=== PATIENT | female | born 1960 | race Caucasian/White ===

== ENCOUNTER → 2017-04-21 | Outpatient (CLI) | payer OTHER | LOC: M LAB 06:02 | PROVIDERS: ATTEND Physician Assistant | DX: E55.9 Vitamin D deficiency, unspecified (principal) ==

== ENCOUNTER 2017-06-07 05:10 | Emergency (ER) | payer OTHER ==
[~2017-06-07] VITALS: Ht 177.8 cm; Wt 90.0 kg
[2017-06-07 05:10] VITALS: BP 149/71
[2017-06-07] MEDS ORDERED: LISI10TA4 PO (05:17)
[2017-06-07] MEDS ORDERED: OMEP40CA2 PO (05:17)
[2017-06-07] MEDS ORDERED: BACT800T5 PO (06:03)
[2017-06-07] MEDS ORDERED: BACTRIM 160MG/800MG DS TAB PO ONE (06:15)
[2017-06-07] MEDS ORDERED: PHENAZOPYRIDINE 100 MG TAB PO ONE (06:15)
[2017-06-07 06:17] LABS: RENAL EPITHELIAL CELLS 4 /HPF
== END 2017-06-07 06:15 | disposition home or self-care (01) ==
LOC: M ED 05:10
DX: N30.90 Cystitis, unspecified without hematuria (principal); I10 Essential (primary) hypertension; K21.9 Gastro-esophageal reflux disease without esophagitis; Z79.899 Other long term (current) drug therapy

== ENCOUNTER → 2017-09-29 | Outpatient (REF) | payer OTHER | LOC: M LAB REF 17:07 | DX: N39.0 Urinary tract infection, site not specified (principal) | CPT/HCPCS: 87088; 87186 ==

== ENCOUNTER → 2017-10-18 | Outpatient (REF) | payer OTHER ==
[2017-10-18 21:37] LABS: APPEARANCE, URINE CLOUDY (CLEAR); BACTERIA, URINE AUTO 2+ (NEGATIVE); BILIRUBIN, URINE AUTO NEGATIVE (NEGATIVE); BLOOD, URINE BLOOD 1+ (NEGATIVE); COLOR, URINE YELLOW (YELLOW); GLUCOSE, URINE (UA) AUTO NEGATIVE (NEGATIVE); KETONE, URINE AUTO NEGATIVE (NEGATIVE); LEUKOCYTE ESTERASE, URINE AUTO 3+ (NEGATIVE); MUCUS, URINE SMALL (NEGATIVE); NITRITE, URINE AUTO POSITIVE (NEGATIVE); PROTEIN, URINE AUTO NEGATIVE (NEGATIVE); RBC, URINE AUTO 3 /HPF (0-3); SPECIFIC GRAVITY URINE AUTO 1.008 (1.002-1.035); SQUAMOUS EPITHELIAL CELL UR AU 0 /HPF (0-6); WBC, URINE AUTO TNTC /HPF (0-3)
== END ==
LOC: M LAB REF 21:24
DX: N39.0 Urinary tract infection, site not specified (principal)
CPT/HCPCS: 81001

== ENCOUNTER → 2018-01-09 | Outpatient (CLI) | payer OTHER ==
[2018-01-09 07:30] LABS: ANION GAP 8 MEQ/L (8-16); BLOOD UREA NITROGEN 9 MG/DL (7-18); CALCIUM LEVEL 8.3 MG/DL (8.5-10.1); CARBON DIOXIDE LEVEL 28 MEQ/L (21-32); CHLORIDE LEVEL 110 MEQ/L (98-107); CREATININE FOR GFR 0.97 MG/DL (0.55-1.30); GLOMERULAR FILTRATION RATE > 60.0 (>51); GLUCOSE, FASTING 89 MG/DL (70-100); MAGNESIUM LEVEL 2.2 MG/DL (1.8-2.4); POTASSIUM SERUM 4.3 MEQ/L (3.5-5.1); SODIUM LEVEL 146 MEQ/L (136-145)
[2018-01-09 08:38] LABS: TOTAL 25(OH) VITAMIN D 24.5 NG/ML (30.0-100.0)
== END ==
LOC: M LAB 06:36
DX: K22.70 Barrett's esophagus without dysplasia (principal)
CPT/HCPCS: 83735

== ENCOUNTER → 2018-01-23 | Outpatient (REF) | payer OTHER | LOC: M LAB REF 14:37 | DX: R30.0 Dysuria (principal) ==

== ENCOUNTER → 2018-05-12 | Outpatient (REF) | LOC: M RAD 11:56 | DX: Z12.31 Encounter for screening mammogram for malignant neoplasm of breast (principal); Z02.1 Encounter for pre-employment examination; Z78.0 Asymptomatic menopausal state; Z85.038 Personal history of other malignant neoplasm of large intestine; Z80.3 Family history of malignant neoplasm of breast ==

== ENCOUNTER → 2018-05-26 | Outpatient (CLI) | payer OTHER ==
[2018-05-26 11:42] LABS: BASO # 0.1 10^3/uL (0.0-0.2); BASO % 0.9 % (0.0-1.0); EOS # 0.2 10^3/uL (0.0-0.50); EOS % 3.8 % (0.0-3.0); HEMATOCRIT 41.4 % (36.0-47.0); IMMATURE GRANULOCYTE % 0.5 % (0-3.0); LYMPH # 1.6 10^3/uL (1.5-4.5); LYMPH % 24.7 % (24.0-44.0); MEAN CORPUSCULAR HEMOGLOBIN 26.7 pg (27.0-33.0); MEAN CORPUSCULAR HGB CONC 31.4 g/dl (32.0-36.5); MEAN CORPUSCULAR VOLUME 85.2 fl (80.0-96.0); MONO # 0.6 10^3/uL (0.0-0.8); MONO % 9.2 % (0.0-5.0); NEUTROPHILS # 3.9 10^3/uL (1.8-7.7); NEUTROPHILS % 60.9 % (36.0-66.0); PLATELET COUNT, AUTOMATED 316 10^3/uL (150-450); RED BLOOD COUNT 4.86 10^6/uL (4.00-5.40); RED CELL DISTRIBUTION WIDTH 13.2 % (11.5-14.5); WHITE BLOOD COUNT 6.4 10^3/uL (4.0-10.0)
[2018-05-26 11:44] LABS: CARBOXYHEMOGLOBIN 2.3 % (0.0-1.5)
[2018-05-26 12:08] LABS: ANION GAP 7 MEQ/L (8-16); BLOOD UREA NITROGEN 10 MG/DL (7-18); CALCIUM LEVEL 8.4 MG/DL (8.5-10.1); CARBON DIOXIDE LEVEL 28 MEQ/L (21-32); CHLORIDE LEVEL 109 MEQ/L (98-107); CK-MB VALUE MASS < 1.0 NG/ML (<3.6); CPK CREATINE PHOSPHOKINASE 115 U/L (26-192); CREATININE FOR GFR 0.96 MG/DL (0.55-1.30); GLOMERULAR FILTRATION RATE > 60.0 (>51); GLUCOSE, FASTING 87 MG/DL (70-100); MB/CK RELATIVE INDEX 0.87 (< OR =4); SODIUM LEVEL 144 MEQ/L (136-145)
== END ==
LOC: M LAB 11:10
DX: R42 Dizziness and giddiness (principal)
CPT/HCPCS: 82550

== ENCOUNTER 2018-10-26 20:15 | Emergency (ER) | payer OTHER ==
[~2018-10-26] VITALS: Ht 177.8 cm; Wt 93.2 kg
[~2018-10-26 20:15] MED LIST: BACT800T5 PO; LISI10TA4 PO; OMEP40CA2 PO
[2018-10-26] MEDS ORDERED: MORPHINE 4 MG/ML 1ML VIAL/SYRINGE (J2270) IM ONE (20:45)
[2018-10-26] MEDS ORDERED: ONDANSETRON 4 MG ORAL DISINTEGRATING TAB (Q0162 PER 1MG) PO ONE (20:45)
[2018-10-26] MEDS ORDERED: HYDROMORPHONE HCL 0.5 MG/ 0.5 ML SYRINGE (J1170 PER 1) IV ONE (22:45)
[2018-10-26] MEDS ORDERED: NS 1,000 ML IV ONE (23:45)
[2018-10-27] MEDS ORDERED: LIDOCAINE 1% MDV 20ML VIAL As Ordered ONE (01:38)
[2018-10-27] MEDS ORDERED: LIDOCAINE 1% MDV 20ML VIAL SC ONE (01:45)
[2018-10-27] MEDS ORDERED: HYDROMORPHONE HCL 0.5 MG/ 0.5 ML SYRINGE (J1170 PER 1) IV ONE (02:45)
[2018-10-27] MEDS ORDERED: DILA2TAB6 PO (03:17)
[2018-10-27] MEDS ORDERED: traMADol 50 MG TAB (BULK 4 TAB ED) PO ONE (03:30)
[2018-10-27 03:34] VITALS: BP 114/69
--- NOTE | 2018-10-27 07:13 | CR ---
DATE OF CONSULTATION: 10/26/2018 REASON FOR CONSULTATION: Left displaced distal radius fracture. CONSULTING PHYSICIAN: Dr. Tristen Jacobsen CHIEF COMPLAINT: Left wrist pain. HISTORY OF PRESENT ILLNESS: Stacie Sandoval is a 58-year-old [id number] female who sustained a fall on an outstretched left upper extremity earlier today resulting immediate pain and dysfunction about the left wrist. She presented to the emergency department and was found to have a displaced distal radius fracture and orthopedics was consulted for definitive management. She had denied any antecedent chest pain, shortness of breath or other constitutional symptoms. She localized pain to the left wrist. She denied any associated numbness, tingling or burning sensations distally about the left upper extremity and no other complaints. PAST MEDICAL HISTORY: Hypertension, gastroesophageal reflux disease, colon cancer. MEDICATIONS: - metoprolol - omeprazole ALLERGIES: No known drug allergies. She does have a LATEX allergy. PAST SURGICAL HISTORY: Sigmoidectomy for colon cancer. FAMILY HISTORY: Noncontributory. 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 She does not smoke, drink or use illicit drugs. REVIEW OF SYSTEMS: 14-point review of systems was reviewed and is unremarkable. PHYSICAL EXAMINATION: Vital Signs: Reviewed and normal. General: This is a well-nourished female who appears her stated age in no acute distress. Neurologic: She is awake, alert and oriented to person, place and time. She has intact sensory and motor function in her left upper extremity radial, median, ulnar, AIN and PIN distributions. There is no pain with passive stretch of the fingers. Cardiovascular: She has 2+ radial pulse and brisk capillary refill to all digits of the left upper extremity. Musculoskeletal: Focused physical exam of the left upper extremity demonstrated no open wounds or abrasions. There was ecchymosis on the volar aspect of the wrist. She is able to independently flex and extend all digits of the left upper extremity. There was maximal tenderness on the dorsal aspect of distal radius. RADIOGRAPHS: Plain radiographs of the left wrist demonstrate a displaced comminuted distal radius fracture with about 40 degrees of apex volar angulation. ASSESSMENT: This is a 58-year-old, right hand dominant female with a left displaced distal radius fracture. PLAN: I discussed the patient the natural history of displaced distal radius fractures and the treatment options. We discussed a closed reduction and splinting in the emergency department and stated that if we were able to obtain and maintain adequate closed reduction, then surgical management may be avoidable. The patient would like to avoid surgery if possible. Therefore, she provided informed consent for left wrist closed reduction under hematoma block. PROCEDURE NOTE: After the skin of the left wrist was carefully prepped, I injected 5 mL of 1% lidocaine without epinephrine into the fracture site using mini C-arm fluoroscopic guidance using a barbotage technique. The patient was then placed into 10 pounds of traction for 15 minutes to use ligamentotaxis to obtain length. I was able to restore the length and radial tilt of her distal radius and then performed a closed reduction. I was able to restore the tilt to at least neutral. She was placed in a well-padded sugar-tong splint. The patient tolerated the procedure well. PLAN: The patient will be discharged from the emergency department later today. She will follow up with me in the clinic later this week for repeat radiographs in the splint. If she is able to maintain reduction, then will continue with nonoperative management. If she loses the reduction, then we will likely proceed with open reduction internal fixation. The patient expressed understanding and agreement with the plan. VANCE
--- NOTE | 2018-10-27 08:16 | REP ---
Left forearm two views: There is a Colles fracture of the distal radius. There is a fracture of the base of the ulnar styloid. Mineralization and joint spaces otherwise are unremarkable. Electronically Signed by Arpan Drake MD 10/27/2018 08:08 A
--- NOTE | 2018-10-27 08:17 | REP ---
Left wrist four views: There is a Colles fracture of the distal radius. There is a fracture of base of the ulnar styloid. Mineralization and joint spaces otherwise are unremarkable. Electronically Signed by Arpan Drake MD 10/27/2018 08:09 A
--- NOTE | 2018-10-27 08:19 | REP ---
Left wrist, fluoroscopic views during closed reduction, two views: The Colles fracture of the distal radius is in satisfactory position alignment. The ulnar styloid fracture is in satisfactory position alignment. Plaster casting material is identified. Fluoroscopic exposure time is 30 seconds. Fluoroscopic images are performed with last image hold technology and require no additional radiation. Electronically Signed by Arpan Drake MD 10/27/2018 08:11 A
--- NOTE | 2018-10-27 08:21 | REP ---
Left wrist, post closed reduction two views: There is a plaster splint. The Colles fracture of the distal radius and a fracture of the ulnar styloid are in satisfactory position and alignment . Electronically Signed by Arpan Drake MD 10/27/2018 08:12 A
== END 2018-10-27 03:48 | disposition home or self-care (01) ==
LOC: M ED 20:15
DX: S52.532A Colles' fracture of left radius, initial encounter for closed fracture (principal); S52.612A Displaced fracture of left ulna styloid process, initial encounter for closed fracture; W01.0XXA Fall on same level from slipping, tripping and stumbling without subsequent striking against object, initial encounter; Y92.018 Other place in single-family (private) house as the place of occurrence of the external cause; K21.9 Gastro-esophageal reflux disease without esophagitis; Z79.899 Other long term (current) drug therapy; Z88.5 Allergy status to narcotic agent; Z88.8 Allergy status to other drugs, medicaments and biological substances; Z91.040 Latex allergy status
CPT/HCPCS: 25600; 73090; 73100; 73110; 96361; 96372; 96376; 99285; J1170; J2270; Q0162

== ENCOUNTER → 2019-01-08 | Outpatient (CLI) | payer OTHER ==
[~2019-01-08] MED LIST changes: +DILA2TAB6 PO
[2019-01-08 07:15] LABS: CREATININE FOR GFR 1.08 MG/DL (0.55-1.30); GLOMERULAR FILTRATION RATE 55.5 (>51); MAGNESIUM LEVEL 2.2 MG/DL (1.8-2.4)
[2019-01-08 09:39] LABS: TOTAL 25(OH) VITAMIN D 27.8 NG/ML (30.0-100.0)
== END ==
LOC: M LAB 06:22
PROVIDERS: ATTEND Internal Medicine Gastroenterology
DX: K22.70 Barrett's esophagus without dysplasia (principal); K44.9 Diaphragmatic hernia without obstruction or gangrene; K21.9 Gastro-esophageal reflux disease without esophagitis; C19 Malignant neoplasm of rectosigmoid junction; Z86.010 Personal history of colon polyps; E55.9 Vitamin D deficiency, unspecified; D51.8 Other vitamin B12 deficiency anemias

== ENCOUNTER 2019-02-12 21:22 | Emergency (ER) | payer OTHER ==
[~2019-02-12] VITALS: Ht 177.8 cm; Wt 84.1 kg
[2019-02-12 21:23] VITALS: BP 148/67
[2019-02-12] MEDS ORDERED: LIDOCAINE 1% MDV 20ML VIAL SC ONE (22:15)
== END 2019-02-12 22:57 | disposition home or self-care (01) ==
LOC: M ED 21:22
DX: S91.311A Laceration without foreign body, right foot, initial encounter (principal); W26.0XXA Contact with knife, initial encounter; Y92.098 Other place in other non-institutional residence as the place of occurrence of the external cause; I10 Essential (primary) hypertension; K21.9 Gastro-esophageal reflux disease without esophagitis; Z88.5 Allergy status to narcotic agent; Z91.040 Latex allergy status; Z88.6 Allergy status to analgesic agent; Z79.899 Other long term (current) drug therapy

== ENCOUNTER → 2019-05-18 | Outpatient (REF) | payer OTHER ==
[~2019-05-18] MED LIST changes: -OMEP40CA2 PO; +OMEP40CA97 PO
--- NOTE | 2019-05-18 08:39 | REP ---
BILATERAL SCREENING DIGITAL MAMMOGRAM WITH 3D TOMOSYNTHESIS: There are no palpable abnormalities or other breast complaints. The the patient states she had a clinical breast examination in February,. The Tyrer-Cuzick Score is: 11.5% . Comparison is 05/12/2018, there are no other comparisons available. There are scattered areas of fibroglandular density. There is no dominant mass, micro calcific cluster or architectural distortion that would indicate malignancy. There are no additional findings on 3D tomosynthesiss. There is no change from the prior study. Impression: BIRADS/ACR category 1 mammogram. Negative. Recommendation: Routine annual screening mammography. This mammogram was interpreted with the aid of a FDA approved computer-aided detection system. A. Negative mammogram reports should not delay biopsy if a dominant or clinically suspicious mass is present. B. Not all breast cancers are identified by mammography or tomosynthesis. C. Adenosis and dense breasts may obscure an underlying neoplasm. Patient letter M1. Electronically Signed by Arpan Drake MD 05/18/2019 08:30 A
== END ==
LOC: M RAD 07:26 → EDSTATUS 08:30
PROVIDERS: ATTEND Family Medicine
DX: Z12.31 Encounter for screening mammogram for malignant neoplasm of breast (principal)

== ENCOUNTER → 2019-08-24 | Outpatient (POV) | payer OTHER ==
[~2019-08-24] VITALS: Ht 177.8 cm; Wt 86.4 kg
[2019-08-24 08:25] VITALS: BP 157/77
--- NOTE | 2019-08-25 07:49 | IRCOV ---
[facility] IR Consult Office Visit IR Consult Office Visit DATE: Aug 24, 2019 REASON FOR CONSULTATION/CHIEF COMPLAINT: Varicose veins. HISTORY OF PRESENT ILLNESS: 59-year-old self-referred patient, presents for varicose veins. She first noticed bilateral lower extremity varicose veins in her mid 40s. This was associated with tingling, burning and itching of the skin on the anterior thigh and lower cyr. This progressed to ankle swelling and pain. She is on her feet all day. She always wears compression stockings including knee highs and thigh highs which give partial relief, but she has suffered with blisters associated with compression stockings. She reports bilateral vein stripping done 10 years ago in [place]. After this, she was relatively asymptomatic until more recently. No ulcers. No prior deep vein thrombosis. ALLERGIES: Please see below. HOME MEDICATIONS: Please see below. PAST MEDICAL HISTORY: Colonic Cancer, treated GERD Hypertension PAST SURGICAL HISTORY: Colonic Surgery Vein stripping bilaterally FAMILY HISTORY: Varicose vein disease in the family. SOCIAL HISTORY: Nonsmoker. No alcohol or drugs. REVIEW OF SYSTEMS: Otherwise negative. PHYSICAL EXAMINATION: VITAL SIGNS: Please see below. GENERAL APPEARANCE: Appears well. Comfortable at rest. HEENT: No scleral icterus. RESPIRATORY: Normal breathing at rest. CARDIOVASCULAR: Mild tachycardia. ABDOMEN: Soft nontender. EXTREMITIES: Left lower extremity: Mild edema to the ankles. Spider veins. Visible varicosities along the GSV and LSV distribution. Varicose eczema. No hemosiderin deposition or lipodermatosclerosis. Warm to touch. DP/PT +. Right lower extremity:Mild edema to the ankles. Spider veins. Visible varicosities along the GSV and LSV distribution. Varicose eczema. No hemosiderin deposition or lipodermatosclerosis. Warm to touch. DP/PT +. NEUROLOGICAL: Alert and oriented. PSYCHIATRIC: Appropriate to circumstance. LABORATORY DATA: No recent labs. Imaging: No lower extremity venous ultrasound. ASSESSMENT/PLAN: 59-year-old female with prior history of varicose veins status post bilateral lower extremity vein stripping, re-presents with symptoms of pain swelling and varicose eczema. I will order bilateral lower extremity venous reflux study to look for collaterals, perforators and abnormal superficial venous reflux. If this is positive, we'll go ahead and plan for bilateral lower extremity EVLT. We have scheduled the ultrasound study and will follow up with patient once it is completed. I spent 30 minutes in consultation with the patient. Thank you for this referral. CC patient's PCP Allergies Coded Allergies: latex (Verified Allergy, Intermediate, blisters, 02/12/19) NSAIDS (Non-Steroidal Anti-Inflamma (Verified Adverse Reaction, Mild, stomach irritation, 02/12/19) pt has hx of ulcers morphine (Verified Adverse Reaction, Mild, GI upset, 02/12/19) pt reported GI upset post IM morphine Home Medications Scheduled Lisinopril (Lisinopril), 10 MG PO DAILY, (Reported) Omeprazole (Omeprazole), 40 MG PO DAILY, (Reported) VS, I&O, 24H, Fishbone Vital Signs/I&O Vital Signs Date Time Temp Pulse Resp B/P (MAP) Pulse Ox O2 Delivery O2 Flow Rate FiO2 08/24/19 08:25 98.3 103 18 157/77 (103) 96 Room Air ARGENTINA JANSEN MD Aug 25, 2019 07:49
--- NOTE | 2019-08-25 08:26 | POST-OPPD ---
Postoperative Procedure Note Date Of Procedure: Aug 25, 2019 Time Of Procedure: 08:24 PREOPERATIVE DIAGNOSIS: HUS POSTOPERATIVE DIAGNOSIS: same FINDINGS: left kidney thinning PROCEDURE: left kidney biopsy SURGEON: uzma ANESTHESIA: mod sed SPECIMENS: cores x 3 ESTIMATED BLOOD LOSS: < 5 ml COMPLICATIONS: none POSTOPERATIVE CONDITION: stable ARGENTINA JANSEN MD Aug 25, 2019 08:26
== END ==
LOC: M IRPOV 08:10
PROVIDERS: ATTEND Radiology Diagnostic Radiology
DX: I83.893 Varicose veins of bilateral lower extremities with other complications (principal)

== ENCOUNTER → 2019-09-02 | Outpatient (CLI) | payer OTHER ==
--- NOTE | 2019-09-02 15:22 | REP ---
Bilateral lower extremity duplex venous ultrasound: Reflux study. History: Varicose veins. History of previous ablation bilaterally. Findings: The deep veins are anechoic and fully compressible on two-dimensional scanning from the groin to the popliteal fossa in both lower extremities. Color flow and spectral Doppler interrogation show no evidence of deep vein thrombosis. Reflux findings: Right lower extremity reflux exam demonstrates minimal reflux in the right common femoral artery. Reflux was visible in the right lesser saphenous vein during standing, both at rest and with Valsalva. The lesser saphenous vein measures 8.8 mm in greatest diameter. A greater saphenous vein was not visible. No other deep system reflux was seen. A communicating vein is a present posteriorly without visible reflux. In the left lower extremity there is minimal reflux in the left common femoral vein segment. A posterior communicating vein is seen without evidence of reflux. The lesser saphenous vein on the left measures 3.2 mm in diameter. The greater saphenous vein on the left could not be visualized. Electronically Signed by Raman Rico MD 09/02/2019 05:06 P
== END ==
LOC: M RAD 10:59
PROVIDERS: ATTEND Radiology Diagnostic Radiology
DX: I83.90 Asymptomatic varicose veins of unspecified lower extremity (principal)

== ENCOUNTER → 2019-09-22 | Outpatient (CLI) | payer OTHER ==
[~2019-09-22] MED LIST changes: +LIDOCAINE 1% MDV 20ML VIAL As Ordered ONE; +LIDOCAINE 2% MDV 20 ML VIAL As Ordered ONE; +MIDAZOLAM INJ 2 MG/2 ML VIAL (J2250) As Ordered ONE; +diphenhydrAMINE INJ 50MG/ML VIAL (J1200) As Ordered ONE; +fentaNYL 100 MCG/2 ML INJECTION (J3010) As Ordered ONE
--- NOTE | 2019-09-22 13:33 | IRHP ---
[facility] IR Pre-Procedure H & P General Date of Service: Sep 22, 2019 Procedure: Same Day Surgery Interval History and Physical I have seen the patient and reviewed last H & P performed within 30 days. There is no significant interval change. History of Present Illness Chief Complaint The patient is a 59-year-old female admitted with a reason for visit of Varicose Veins. PRE-PROCEDURE DIAGNOSIS: VV HEART: normal rate. LUNGS: normal breathing at rest. ASA Classification ASA Classification: II-Mild systemic disease Mallampati Score: II NPO: Yes Problems with prior sedation: No Obstructive Sleep Apnea: No Plan moderate sedation Allergies Coded Allergies: latex (Verified Allergy, Intermediate, blisters, 02/12/19) NSAIDS (Non-Steroidal Anti-Inflamma (Verified Adverse Reaction, Mild, stomach irritation, 02/12/19) pt has hx of ulcers morphine (Verified Adverse Reaction, Mild, GI upset, 02/12/19) pt reported GI upset post IM morphine Home Medications Scheduled Lisinopril (Lisinopril), 10 MG PO DAILY, (Reported) Omeprazole (Omeprazole), 40 MG PO DAILY, (Reported) VS, I&O, 24H, Fishbone Vital Signs/I&O Vital Signs Date Time Temp Pulse Resp B/P (MAP) Pulse Ox O2 Delivery O2 Flow Rate FiO2 09/22/19 12:22 97.9 87 18 100 Room Air ARGENTINA JANSEN MD Sep 22, 2019 13:33
--- NOTE | 2019-09-22 14:43 | POST-OPPD ---
Postoperative Procedure Note Date Of Procedure: Sep 22, 2019 Time Of Procedure: 14:42 PREOPERATIVE DIAGNOSIS: varicose veins POSTOPERATIVE DIAGNOSIS: same FINDINGS: incompetent right LSV PROCEDURE: EVLT rt LSV SURGEON: uzma ANESTHESIA: mod sed ESTIMATED BLOOD LOSS: < 5 ml COMPLICATIONS: none POSTOPERATIVE CONDITION: stable ARGENTINA JANSEN MD Sep 22, 2019 14:43
[2019-09-22 16:35] VITALS: BP 120/58
--- NOTE | 2019-09-23 16:48 | REP ---
IR Endovenous laser treatment for right leg varicose vein. IR Ultrasound of the right leg. IR Tumescent anesthesia under ultrasound guidance. IR moderate sedation. Clinical information: Right leg varicose veins. Incompetent right lesser saphenous vein. Greater than 0.5 seconds reflux. Physician: Dr. Day. Procedure: The patient was advised of the benefits, risks and alternatives of the procedure and informed consent was obtained. The time-out was performed with verification of the patient's name, MRN, site of procedure and type of procedure to be performed. The patient was positioned in the prone position on the table. The site was prepped and draped in the usual sterile fashion. Moderate sedation was performed by the physician including the presence of an independent trained observer who assisted in monitoring the patient's level of consciousness and physiologic status. Following the administration of fentanyl and Versed , the physician spent 60 minutes of continuous face to face time with the patient. Ultrasound of the right lower extremity demonstrates reflux within the right lesser saphenous vein with greater than 0.5 seconds reflux. Abnormal dilated varicose veins. The access site was identified with ultrasound and anesthetized with lidocaine. The right lesser saphenous vein was accessed under ultrasound guidance. An 018 wire was advanced into the vein. Incision at the access site was made using a scalpel. The needle was removed and an access catheter was advanced over the wire under ultrasound guidance and positioned > 2.5 centimeters from the lesser saphenous/popliteal vein junction. The laser fiber was advanced through the catheter under ultrasound guidance and positioned with the tip located > 2.5 cm from the popliteal vein. Tumescent anesthesia was then injected under ultrasound guidance along the entire length of the vein to be treated. Repeat ultrasound of the popliteal junction was used to confirm positioning of the tip of the laser back > 2.5 cm from junction. The laser was then activated and under ultrasound guidance used to laser the right lesser saphenous vein back to the access point. Simultaneous manual compression was applied to the treated vein. Treatment: Wattage: 7 Time: 67 seconds Pullback rate 1 cm every 7 seconds Total Energy deposited 472 joules Treatment 50 joules per centimeter of vein. The fiber and catheter were removed, pressure held and hemostasis achieved. A sterile dressing was applied to the site. Compression dressing was then applied to the leg, from ankle to groin. The patient tolerated the procedure well and was returned to the PRU in stable condition. EBL: < 5 ml. Complications: None. Impression: 1. Ultrasound demonstrates right lower extremity varicose veins and incompetent right lesser saphenous vein. 2. Successful right lesser saphenous vein ablation with laser. 3. Compression dressing applied from ankle to groin. Patient to return in 1 week for follow up ultrasound at which time the compression dressing will be switched to stockings. Thank you this referral. Cc PCP Electronically Signed by Lamar Day MD 09/23/2019 04:47 P MTDD
== END ==
LOC: M IRPRO 11:40
PROVIDERS: ATTEND Radiology Diagnostic Radiology
DX: I83.891 Varicose veins of right lower extremity with other complications (principal); I87.2 Venous insufficiency (chronic) (peripheral); Z88.6 Allergy status to analgesic agent; Z88.8 Allergy status to other drugs, medicaments and biological substances; Z79.899 Other long term (current) drug therapy
CPT/HCPCS: 36478; 76940; 99152; 99153; J1200; J2250; J3010

== ENCOUNTER → 2019-09-29 | Outpatient (CLI) | payer OTHER ==
[~2019-09-29] MED LIST changes: -LIDOCAINE 1% MDV 20ML VIAL As Ordered ONE; -LIDOCAINE 2% MDV 20 ML VIAL As Ordered ONE; -MIDAZOLAM INJ 2 MG/2 ML VIAL (J2250) As Ordered ONE; -diphenhydrAMINE INJ 50MG/ML VIAL (J1200) As Ordered ONE; -fentaNYL 100 MCG/2 ML INJECTION (J3010) As Ordered ONE
--- NOTE | 2019-09-29 18:44 | REP ---
Clinical: Right lower extremity pain status post endovascular laser ablation therapy (EVLT). Technique: Real time lyles scale and color Doppler evaluation using linear high frequency transducer. Findings: Ultrasound examination of the right lower extremity deep venous structures from the common femoral vein to the popliteal vein demonstrates normal compressibility and flow characteristics. No evidence for deep venous thrombosis noted. Chronic thrombus noted in the lesser saphenous vein and greater saphenous vein consistent with prior EVLT. Impression: No evidence of deep venous thrombosis. Electronically Signed by Matt Toledo MD 09/29/2019 06:36 P
== END ==
LOC: M RAD 09-22 11:39
PROVIDERS: ATTEND Radiology Diagnostic Radiology
DX: I82.891 Chronic embolism and thrombosis of other specified veins (principal)

== ENCOUNTER → 2019-11-02 | Outpatient (POV) | payer OTHER ==
--- NOTE | 2019-11-03 09:53 | IRPN ---
[facility] IR Progress Note IR Progress Note DATE: Nov 02, 2019 FOLLOW-UP: Status post right lesser saphenous vein EVLT. Patient doing well. Reports no leg swelling, pain, skin reddening or bulging veins. Continues to wear compression stocking. ON EXAMINATION: none IMPRESSION: Complete right leg EVLT treatment. No further follow up scheduled unless initiated by patient and or referring physician. Thank you for this referral Allergies Coded Allergies: latex (Verified Allergy, Intermediate, blisters, 02/12/19) NSAIDS (Non-Steroidal Anti-Inflamma (Verified Adverse Reaction, Mild, stomach irritation, 02/12/19) pt has hx of ulcers morphine (Verified Adverse Reaction, Mild, GI upset, 02/12/19) pt reported GI upset post IM morphine ARGENTINA JANSEN MD Nov 03, 2019 09:53
== END ==
LOC: M IRPOV 14:07
PROVIDERS: ATTEND Radiology Diagnostic Radiology
DX: Z48.812 Encounter for surgical aftercare following surgery on the circulatory system (principal); Z88.6 Allergy status to analgesic agent; Z91.040 Latex allergy status

== ENCOUNTER → 2021-01-11 | Outpatient (CLI) | payer OTHER ==
[~2021-01-11] MED LIST changes: +LISI10TA22 PO; -LISI10TA4 PO; +OMEP40CA4 PO; -OMEP40CA97 PO
[2021-01-11 11:52] LABS: MAGNESIUM LEVEL 2.1 MG/DL (1.8-2.4)
[2021-01-11 12:00] LABS: TOTAL 25(OH) VITAMIN D 50.5 NG/ML (30.0-100.0)
== END ==
LOC: M LAB 10:01
PROVIDERS: ATTEND Student in an Organized Health Care Education/Training Program
DX: K22.70 Barrett's esophagus without dysplasia (principal)

== ENCOUNTER → 2022-01-10 | Outpatient (REF) | payer OTHER | LOC: M LAB REF 12:10 | PROVIDERS: ATTEND Physician Assistant | DX: N39.0 Urinary tract infection, site not specified (principal) ==

== ENCOUNTER → 2022-03-15 | Outpatient (CLI) | payer OTHER ==
[2022-03-15 12:36] LABS: BASO # 0.1 10^3/uL (0.0-0.2); BASO % 1.3 % (0.0-1.0); EOS # 0.2 10^3/uL (0.0-0.5); EOS % 2.5 % (0.0-3.0); HEMATOCRIT 45.6 % (36.0-47.0); HEMOGLOBIN 14.4 g/dl (12.0-15.5); LYMPH # 1.8 10^3/uL (1.5-5.0); LYMPH % 29.3 % (24.0-44.0); MEAN CORPUSCULAR HEMOGLOBIN 28.1 pg (27.0-33.0); MEAN CORPUSCULAR HGB CONC 31.6 g/dl (32.0-36.5); MEAN CORPUSCULAR VOLUME 88.9 fl (80.0-96.0); MONO # 0.7 10^3/uL (0.0-0.8); MONO % 11.6 % (2.0-8.0); NEUTROPHILS # 3.3 10^3/uL (1.5-8.5); NEUTROPHILS % 54.8 % (36.0-66.0); PLATELET COUNT, AUTOMATED 428 10^3/uL (150-450); RED BLOOD COUNT 5.13 10^6/uL (4.00-5.40)
[2022-03-15 13:38] LABS: ALT/SGPT 26 U/L (12-78); BILIRUBIN,TOTAL 0.3 MG/DL (0.2-1.0); BLOOD UREA NITROGEN 9 MG/DL (7-18); CARBON DIOXIDE LEVEL 28 MEQ/L (21-32); CHLORIDE LEVEL 106 MEQ/L (98-107); CREATININE FOR GFR 0.88 MG/DL (0.55-1.30); GLOMERULAR FILTRATION RATE > 60.0 (>45); GLUCOSE, FASTING 96 MG/DL (70-100); POTASSIUM SERUM 4.5 MEQ/L (3.5-5.1); SODIUM LEVEL 140 MEQ/L (136-145)
== END ==
LOC: M LAB 11:26
PROVIDERS: ATTEND Family Medicine
DX: K83.1 Obstruction of bile duct (principal)

== ENCOUNTER → 2022-04-02 | Outpatient (REF) | payer OTHER | LOC: M LAB REF 17:28 | PROVIDERS: ATTEND Physician Assistant | DX: J06.9 Acute upper respiratory infection, unspecified (principal) ==

== ENCOUNTER → 2023-03-20 | Outpatient (CLI) | payer OTHER ==
[2023-03-20 17:45] LABS: MAGNESIUM LEVEL 1.8 MG/DL (1.8-2.4)
[2023-03-20 17:47] LABS: TOTAL 25(OH) VITAMIN D 62.8 NG/ML (20.0-100.0)
== END ==
LOC: M LAB 16:56
PROVIDERS: ATTEND Internal Medicine Gastroenterology
DX: K22.70 Barrett's esophagus without dysplasia (principal); Z85.048 Personal history of other malignant neoplasm of rectum, rectosigmoid junction, and anus; E55.9 Vitamin D deficiency, unspecified

== ENCOUNTER → 2024-07-09 | Outpatient (CLI) | payer OTHER ==
[2024-07-09 14:13] LABS: IRON (FE) 23 UG/DL (50-170); PERCENT SATURATION 7.6 % (13.2-45.0); TOTAL 25(OH) VITAMIN D 48.8 NG/ML (20.0-100.0); TOTAL IRON BINDING CAPACITY 304 UG/DL (250-425)
[2024-07-09 14:14] LABS: VITAMIN B12 LEVEL 706 PG/ML (211-911)
[2024-07-09 14:18] LABS: BASO % 0.7 % (0.0-1.0); EOS # 0.1 10^3/uL (0.0-0.5); EOS % 2.6 % (0.0-3.0); HEMATOCRIT 44.3 % (36.0-47.0); HEMOGLOBIN 13.8 g/dl (12.0-15.5); LYMPH # 1.2 10^3/uL (1.5-5.0); LYMPH % 22.1 % (24.0-44.0); MEAN CORPUSCULAR HEMOGLOBIN 29.3 pg (27.0-33.0); MEAN CORPUSCULAR HGB CONC 31.2 g/dl (32.0-36.5); MEAN CORPUSCULAR VOLUME 94.1 fl (80.0-96.0); MONO # 0.6 10^3/uL (0.0-0.8); NEUTROPHILS # 3.4 10^3/uL (1.5-8.5); NEUTROPHILS % 63.2 % (36.0-66.0); PLATELET COUNT, AUTOMATED 313 10^3/uL (150-450); RED BLOOD COUNT 4.71 10^6/uL (4.00-5.40); WHITE BLOOD COUNT 5.3 10^3/uL (4.0-10.0)
[2024-07-09 14:19] LABS: FOLATE > 24.0 NG/ML (>5.4)
== END ==
LOC: M PLALAB 10:38
PROVIDERS: ATTEND Nurse Practitioner Adult Health
DX: D51.9 Vitamin B12 deficiency anemia, unspecified (principal); K22.70 Barrett's esophagus without dysplasia; E55.9 Vitamin D deficiency, unspecified

== ENCOUNTER 2024-07-28 12:21 | Outpatient (CLI) | payer OTHER ==
[~2024-07-28] VITALS: Ht 177.8 cm; Wt 90.0 kg
[2024-07-28 12:35] VITALS: BP 134/62; O2SAT 100
[2024-07-28] MEDS: FERRIC CARBOXYMALTOSE 750 MG (VIAL MATE) IN 100ML NS IV ONE (12:48)
[2024-07-28 13:35] VITALS: BP 132/69; O2SAT 98
== END 2024-07-28 13:40 ==
LOC: M INFU 12:21
PROVIDERS: ATTEND Nurse Practitioner Adult Health
DX: D50.9 Iron deficiency anemia, unspecified (principal); Z88.5 Allergy status to narcotic agent; Z88.6 Allergy status to analgesic agent; Z91.040 Latex allergy status
CPT/HCPCS: 96365; J1439

== ENCOUNTER → 2025-01-27 | Outpatient (CLI) | payer OTHER ==
[2025-01-27 11:23] LABS: BASO # 0.1 10^3/uL (0.0-0.2); BASO % 1.1 % (0.0-1.0); EOS # 0.2 10^3/uL (0.0-0.5); EOS % 3.7 % (0.0-3.0); LYMPH # 1.5 10^3/uL (1.5-5.0); LYMPH % 27.7 % (24.0-44.0); MONO # 0.6 10^3/uL (0.0-0.8); MONO % 11.7 % (2.0-8.0); NEUTROPHILS # 3.0 10^3/uL (1.5-8.5); NEUTROPHILS % 55.4 % (36.0-66.0); PLATELET COUNT, AUTOMATED 338 10^3/uL (150-450)
[2025-01-27 11:30] LABS: TOTAL 25(OH) VITAMIN D 38.3 NG/ML (20.0-100.0)
[2025-01-27 11:31] LABS: IRON (FE) 84 UG/DL (50-170)
[2025-01-27 11:32] LABS: ALT/SGPT 24 U/L (7.0-40); AST/SGOT 22 U/L (<34); CALCIUM LEVEL 8.9 MG/DL (8.3-10.6); CARBON DIOXIDE LEVEL 28 MMOL/L (20-31); CHLORIDE LEVEL 106 MMOL/L (98-107); CREATININE FOR GFR 0.88 MG/DL (0.55-1.30); GLOMERULAR FILTRATION RATE 73.3 (>45); PERCENT SATURATION 29.9 % (13.2-45.0); POTASSIUM SERUM 4.3 MMOL/L (3.5-5.1); SODIUM LEVEL 145 MMOL/L (136-145)
[2025-01-27 11:33] LABS: FREE T4 1.16 NG/DL (0.89-1.76)
[2025-01-27 11:34] LABS: VITAMIN B12 LEVEL 598 PG/ML (211-911)
[2025-01-27 11:57] LABS: ESTIMATED AVERAGE GLUCOSE 91.0 MG/DL (60-110)
== END ==
LOC: M PLALAB 07:22
PROVIDERS: ATTEND Family Medicine
DX: H53.8 Other visual disturbances (principal); D51.9 Vitamin B12 deficiency anemia, unspecified; E55.9 Vitamin D deficiency, unspecified; E61.1 Iron deficiency

== ENCOUNTER → 2025-02-02 | Outpatient (CLI) | payer OTHER | LOC: M RAD 16:25 | PROVIDERS: ATTEND Family Medicine | DX: H53.8 Other visual disturbances (principal); I72.0 Aneurysm of carotid artery ==

== ENCOUNTER 2025-07-06 17:34 | Emergency (ER) | payer MEDICARE, OTHER ==
[~2025-07-06] VITALS: Ht 177.8 cm; Wt 94.1 kg
[2025-07-06] MEDS ORDERED: ASPI81CH33 PO (17:52)
[2025-07-06] MEDS: TETANUS/DIPHTH/ACEL. PERTUSSIS 0.5 ML SYR IM ONE (18:08)
[2025-07-06 19:36] VITALS: BP 118/62; TEMP 98.4; O2SAT 100
== END 2025-07-06 20:02 | disposition home or self-care (01) ==
LOC: M ED 17:34
DX: S61.216A Laceration without foreign body of right little finger without damage to nail, initial encounter (principal); W26.8XXA Contact with other sharp object(s), not elsewhere classified, initial encounter; Y92.009 Unspecified place in unspecified non-institutional (private) residence as the place of occurrence of the external cause; Y93.9 Activity, unspecified; Y99.9 Unspecified external cause status; K21.9 Gastro-esophageal reflux disease without esophagitis; I10 Essential (primary) hypertension; Z79.899 Other long term (current) drug therapy; Z88.6 Allergy status to analgesic agent; Z88.5 Allergy status to narcotic agent; Z91.040 Latex allergy status